=== PATIENT | female | born 1940 | race Caucasian/White ===

== ENCOUNTER → 2016-09-24 | Outpatient (CLI) | payer MEDICARE, OTHER ==
[~2016-09-24] MED LIST: ASPI325T PO; B-COTAB41 PO; COZA100T PO; CYMB30CA PO; D31000CA PO; FIBE625T10 PO; HYDR-3516 PO; LORTA5 PO; MAGN250T11 PO; MAGN250T13 PO; MEMA10 PO; METO-309 PO; METO50 PO; NAME10TA PO; OMEG100037 PO; OMEG1CAP28 PO; POTA10TA2 PO; POTA99TA12 PO; PYRI100T PO; VITA10003 PO; VITA100T55 PO; VITA250L BUCCAL; VITA250L PO; [UNRECOGNIZED DRUG - CODE] PO; [UNRECOGNIZED DRUG - OTHER]
[2016-09-24 19:03] LABS: AUTOMATED NEUTROPHIL # 5.9 TH/MM3 (1.8-7.7); BASOPHIL % 0.2 % (0.0-2.0); EOSINOPHIL # 0.1 TH/MM3 (0-0.4); EOSINOPHIL % 0.7 % (0.0-4.0); HEMATOCRIT 35.3 % (35.0-46.0); HEMO FLAGS DIFF FINAL; LYMPH % 16.9 % (9.0-44.0); LYMPHOCYTE # 1.4 TH/MM3 (1.0-4.8); MEAN CELL VOLUME 103.2 FL (80.0-100.0); MEAN CORPUSCULAR HEMOGLOBIN 34.8 PG (27.0-34.0); MEAN CORPUSCULAR HGB CONC 33.7 % (32.0-36.0); NEUT % 72.2 % (16.0-70.0); PLATELET COUNT 167 TH/MM3 (150-450); RED BLOOD COUNT 3.42 MIL/MM3 (4.00-5.30); WHITE BLOOD COUNT 8.2 TH/MM3 (4.0-11.0)
[2016-09-24 19:43] LABS: FREE T4 0.97 NG/DL (0.76-1.46); HDL CHOLESTEROL 98.9 MG/DL (40.0-60.0); LDL CHOLESTEROL 75 MG/DL (0-99)
[2016-09-24 20:37] LABS: ALKALINE PHOSPHATASE 83 U/L (45-117); ALT (GPT) 23 U/L (10-53); ANION GAP 4 MEQ/L (5-15); AST (GOT) 17 U/L (15-37); BICARBONATE 32.5 MEQ/L (21.0-32.0); BLOOD UREA NITROGEN 16 MG/DL (7-18); CHLORIDE 107 MEQ/L (98-107); GLOMERULAR FILTRATION RATE 87 ML/MIN (>89); GLUCOSE,FASTING 70 MG/DL (74-99); POTASSIUM 4.9 MEQ/L (3.5-5.1); SODIUM (NA) 143 MEQ/L (136-145); TOTAL BILIRUBIN ADULT 0.4 MG/DL (0.2-1.0)
== END ==
LOC: PLAB 15:47
PROVIDERS: ATTEND Family Medicine
DX: I10 Essential (primary) hypertension (principal); F41.9 Anxiety disorder, unspecified; G30.1 Alzheimer's disease with late onset; I71.2 Thoracic aortic aneurysm, without rupture; K21.0 Gastro-esophageal reflux disease with esophagitis; M51.27 Other intervertebral disc displacement, lumbosacral region
CPT/HCPCS: 36415; 80053; 80061; 82607; 84439; 84443; 85025

== ENCOUNTER 2016-12-30 07:07 | Emergency (ER) | payer MEDICARE, OTHER ==
[~2016-12-30 07:07] MED LIST changes: -D31000CA PO; -LORTA5 PO; -MAGN250T13 PO; -MEMA10 PO; -METO50 PO; -OMEG100037 PO; -POTA99TA12 PO; -PYRI100T PO; -VITA100T55 PO; -VITA250L BUCCAL; -VITA250L PO; -[UNRECOGNIZED DRUG - CODE] PO; -[UNRECOGNIZED DRUG - OTHER]
[2016-12-30 07:16] VITALS: BP 200/103; PULSE 64; RESP 18; TEMP 97.8; O2SAT 98
[2016-12-30] MEDS ORDERED: [UNRECOGNIZED DRUG - OTHER] (07:19)
[2016-12-30 07:25] VITALS: O2SAT 97
--- NOTE | 2016-12-30 07:26 | PD ---
HPI Chief Complaint: Chest Pain Time Seen by Provider: 07:09 Travel History International Travel<30 days: No Contact w/Intl Traveler<30days: No Traveled to known affect area: No History of Present Illness HPI The patient is a 76-year-old female who presents emergency department for back pain and chest pain. According the the patient has a history of dementia and chronic back pain for which she undergoes TREMAYNE. The patient awakened at 4 AM complaining of left-sided mid thoracic back pain across the scapula as well as anterior chest pain. The patient does have a previous history of mild CVA, but no previous history of coronary artery disease. The patient does have a history of hypertension and takes 2 different antihypertensive medications. The patient states the pain started across the midthoracic region of the scapula and radiates around the left side of the chest to the anterior chest area, just superior to the epigastrium. She does complain of mild shortness of breath but denies any nausea or vomiting. The patient denies any diaphoresis. The symptoms are moderate and there are no alleviating or exacerbating factors. PFSH Past Medical History Hx Anticoagulant Therapy: No Arthritis: No (hip frx from fall, back frx and rib frx from fall ) Anxiety: No Depression: No Heart Rhythm Problems: No Cancer: No Cardiovascular Problems: Yes (HTN) High Cholesterol: No Chemotherapy: No Chest Pain: Yes Congestive Heart Failure: No Cerebrovascular Accident: No Diabetes: No Diminished Hearing: No Endocrine: No Fibromyalgia: Yes Gastrointestinal Disorders: Yes (Peptic ulcer) Genitourinary: Yes (Incontinence) Hepatitis: No Hiatal Hernia: No Hypertension: Yes Immune Disorder: No Implanted Vascular Access Dvce: No Musculoskeletal: Yes (CBP) Neurologic: Yes (TIA) Psychiatric: Yes (Dementia) Reproductive: No Respiratory: No Immunizations Current: No Migraines: Yes Renal Failure: Yes Seizures: No Thyroid Disease: No PNEUMOCCOCAL Vaccine (Year): 2 Menopausal: Yes Ovarian Cysts: Yes (Ovary removed) Past Surgical History Abdominal Surgery: No Cardiac Surgery: No Ear Surgery: No Endocrine Surgery: No Eye Surgery: Yes (Cataracts with lens implant, glaucoma) Gynecologic Surgery: Yes Hysterectomy: Yes (Partial) Neurologic Surgery: No Oral Surgery: No Thoracic Surgery: Yes (Back) Other Surgery: Yes (back surgery) Family History Family Hypercholesterolemia: Yes Social History Alcohol Use: No Tobacco Use: No Substance Use: No Allergies-Medications (Allergen,Severity, Reaction): Coded Allergies: Codeine (Verified Adverse Reaction, Severe, NAUSEA, 12/30/16) Reported Meds & Prescriptions Reported Meds & Active Scripts Active Reported K-99 (Potassium Gluconate) 595 Mg Cap Vitamin B-Complex (B-Complex Vitamins) 1 Tab 1 Tab PO DAILY Potassium Chloride ER (Potassium Chloride) 10 Meq Tab 10 Meq PO BID [id number] Ethyl Esters 1 Gm Cap 1 Gm PO BID Namenda (Memantine) 10 Mg Tab 10 Mg PO BID Lopressor (Metoprolol Tartrate) 50 Mg Tab 50 Mg PO BID Magnesium Oxide 250 Mg Tab 250 Mg PO DAILY Cozaar (Losartan Potassium) 100 Mg Tab 100 Mg PO DAILY Hydrocodone-Acetaminophen 5-325 mg Tab 1 Tab PO Q4H PRN Cymbalta DR (Duloxetine HCl) 30 Mg Capdr 30 Mg PO DAILY Vitamin D-3 (Cholecalciferol) 1,000 Unit Tab 1,000 Units PO BID Aspirin 325 Mg Tab 325 Mg PO DAILY Review of Systems Except as stated in HPI: all other systems reviewed are Neg General / Constitutional: No: Fever HENT: No: Lightheadedness Cardiovascular: Positive: Chest Pain or Discomfort, No: Diaphoresis Respiratory: Positive: Shortness of Breath Gastrointestinal: No: Nausea, Vomiting, Abdominal Pain Musculoskeletal: Positive: Pain (chronic back pain), No: Weakness Neurologic: No: Dizziness Physical Exam Narrative GENERAL: Awake, alert, pleasant 76-year-old female who appears her stated age and is in no acute respiratory distress. SKIN: Focused skin assessment warm/dry. No stigmata of shingles. HEAD: Atraumatic. Normocephalic. EYES: Pupils equal and round. No scleral icterus. No injection or drainage. ENT: No nasal bleeding or discharge. Mucous membranes pink and moist. NECK: Trachea midline. No JVD. CARDIOVASCULAR: Regular rate and rhythm. No murmur appreciated. RESPIRATORY: No accessory muscle use. Clear to auscultation. Breath sounds equal bilaterally. GASTROINTESTINAL: Abdomen soft, non-tender, nondistended. No rebound tenderness. MUSCULOSKELETAL: No obvious deformities. No clubbing. No cyanosis. No edema. NEUROLOGICAL: Awake and alert. No obvious cranial nerve deficits. Motor grossly within normal limits. Normal speech. Nonfocal. Oriented to person and , but not daily week. PSYCHIATRIC: Appropriate mood and affect; insight and judgment normal. Data Data Last Documented VS Vital Signs Date Time Temp Pulse Resp B/P Pulse Ox O2 Delivery O2 Flow Rate FiO2 12/30/16 07:43 131/83 134/81 12/30/16 07:25 97 Room Air 12/30/16 07:16 97.8 64 18 Orders Electrocardiogram (12/30/16 07:21) Ckmb (Isoenzyme) Profile (12/30/16 07:21) Complete Blood Count With Diff (12/30/16 07:21) Comprehensive Metabolic Panel (12/30/16 07:21) Magnesium (Mg) (12/30/16 07:21) Prothrombin Time / Inr (Pt) (12/30/16 07:21) Act Partial Throm Time (Ptt) (12/30/16 07:21) Troponin I (12/30/16 07:21) Lipase (12/30/16 07:21) Chest, Single Ap (12/30/16 07:21) Ecg Monitoring (12/30/16 07:21) Bilateral Bp Monitoring (12/30/16 07:21) Iv Access Insert/Monitor (12/30/16 07:21) Oximetry (12/30/16 07:21) Oxygen Administration (12/30/16 07:21) Sodium Chloride 0.9% Flush (Ns Flush) (12/30/16 07:30) Nitroglycerin Sl (Nitrostat Sl) (12/30/16 07:30) Cta Thor Abd Aorta W Iv C W3d (12/30/16 07:21) Morphine Inj (Morphine Inj) (12/30/16 07:30) Ondansetron Inj (Zofran Inj) (12/30/16 07:30) Iohexol 350 Inj (Omnipaque 350 Inj) (12/30/16 09:03) Ketorolac Inj (Toradol Inj) (12/30/16 09:45) Labs Laboratory Tests Test 12/30/16 07:15 White Blood Count 8.0 TH/MM3 Red Blood Count 3.38 MIL/MM3 Hemoglobin 11.6 GM/DL Hematocrit 34.8 % Mean Corpuscular Volume 102.8 FL Mean Corpuscular Hemoglobin 34.2 PG Mean Corpuscular Hemoglobin 33.3 % Concent Red Cell Distribution Width 12.9 % Platelet Count 189 TH/MM3 Mean Platelet Volume 10.6 FL Neutrophils (%) (Auto) 66.4 % Lymphocytes (%) (Auto) 19.2 % Monocytes (%) (Auto) 12.0 % Eosinophils (%) (Auto) 1.8 % Basophils (%) (Auto) 0.6 % Neutrophils # (Auto) 5.4 TH/MM3 Lymphocytes # (Auto) 1.5 TH/MM3 Monocytes # (Auto) 1.0 TH/MM3 Eosinophils # (Auto) 0.1 TH/MM3 Basophils # (Auto) 0.0 TH/MM3 CBC Comment DIFF FINAL Differential Comment Prothrombin Time 10.1 SEC Prothromb Time International 0.9 RATIO Ratio Activated Partial 25.0 SEC Thromboplast Time Sodium Level 145 MEQ/L Potassium Level 3.9 MEQ/L Chloride Level 107 MEQ/L Carbon Dioxide Level 27.5 MEQ/L Anion Gap 11 MEQ/L Blood Urea Nitrogen 15 MG/DL Creatinine 0.73 MG/DL Estimat Glomerular Filtration 77 ML/MIN Rate Random Glucose 99 MG/DL Calcium Level 8.6 MG/DL Magnesium Level 2.2 MG/DL Total Bilirubin 0.4 MG/DL Aspartate Amino Transf 23 U/L (AST/SGOT) Alanine Aminotransferase 20 U/L (ALT/SGPT) Alkaline Phosphatase 87 U/L Total Creatine Kinase 70 U/L Troponin I LESS THAN 0.02 NG/ML Total Protein 6.7 GM/DL Albumin 3.7 GM/DL Lipase 82 U/L MDM Medical Decision Making Medical Screen Exam Complete: Yes Emergency Medical Condition: Yes Medical Record Reviewed: Yes Interpretation(s) EKG reveals normal sinus rhythm with a rate of 61. Q wave noted in lead V1 and V2. No significant changes compared to EKG performed October 27, 2015. Laboratory Tests Test 12/30/16 07:15 White Blood Count 8.0 TH/MM3 Red Blood Count 3.38 MIL/MM3 Hemoglobin 11.6 GM/DL Hematocrit 34.8 % Mean Corpuscular Volume 102.8 FL Mean Corpuscular Hemoglobin 34.2 PG Mean Corpuscular Hemoglobin 33.3 % Concent Red Cell Distribution Width 12.9 % Platelet Count 189 TH/MM3 Mean Platelet Volume 10.6 FL Neutrophils (%) (Auto) 66.4 % Lymphocytes (%) (Auto) 19.2 % Monocytes (%) (Auto) 12.0 % Eosinophils (%) (Auto) 1.8 % Basophils (%) (Auto) 0.6 % Neutrophils # (Auto) 5.4 TH/MM3 Lymphocytes # (Auto) 1.5 TH/MM3 Monocytes # (Auto) 1.0 TH/MM3 Eosinophils # (Auto) 0.1 TH/MM3 Basophils # (Auto) 0.0 TH/MM3 CBC Comment DIFF FINAL Differential Comment Prothrombin Time 10.1 SEC Prothromb Time International 0.9 RATIO Ratio Activated Partial 25.0 SEC Thromboplast Time Sodium Level 145 MEQ/L Potassium Level 3.9 MEQ/L Chloride Level 107 MEQ/L Carbon Dioxide Level 27.5 MEQ/L Anion Gap 11 MEQ/L Blood Urea Nitrogen 15 MG/DL Creatinine 0.73 MG/DL Estimat Glomerular Filtration 77 ML/MIN Rate Random Glucose 99 MG/DL Calcium Level 8.6 MG/DL Magnesium Level 2.2 MG/DL Total Bilirubin 0.4 MG/DL Aspartate Amino Transf 23 U/L (AST/SGOT) Alanine Aminotransferase 20 U/L (ALT/SGPT) Alkaline Phosphatase 87 U/L Total Creatine Kinase 70 U/L Troponin I LESS THAN 0.02 NG/ML Total Protein 6.7 GM/DL Albumin 3.7 GM/DL Lipase 82 U/L Last Impressions Chest X-Ray 12/30/16 0721 Signed Impressions: Service Date/Time: Friday, December 30, 2016 07:49 - CONCLUSION: Slight cardiomegaly and left distal clavicular fracture. Papito Linn MD CTA thoracic abdominal aorta reveals atherosclerotic calcifications of the aorta without evidence for dissection. Differential Diagnosis Differential diagnosis includes acute coronary syndrome, thoracic radiculopathy , compression fracture, dissection, AAA, PE, GERD, pancreatitis, peptic ulcer disease. Narrative Course IV was established, labs are drawn and sent, and the patient was placed on cardiac telemetry monitoring and continuous pulse oximetry monitoring. EKG was ordered and interpreted. Chest x-ray was obtained. The patient was aircraft engine mechanic morphine, Zofran, and nitroglycerin sublingual. Aspirin was held until CTA was obtained to evaluate for possible dissection is patient's blood pressure 200/ 100 with thoracic back pain radiating to the anterior aspect of the chest. I reviewed the patient's EMR she had a negative nuclear medicine myocardial perfusion scan performed on March 08, 2015 as well as December 10, 2012, both were negative, low risk, with EF greater than 70%. EKG reveals no significant changes when compared to previous EKG on October 27, 2015. Laboratory evaluation including creatinine is unremarkable. The patient's troponin is negative. CT is negative for dissection, she does have compression fractures, the states these are old. The patient's pain most likely secondary to radiculopathy from the thoracic region. She is very atypical symptoms with 2 negative nuclear medicine myocardial perfusion scans within the last several years, therefore, patient will not be admitted for repeat stress testing. The patient's symptoms started at 4 AM had been constant, therefore, no indication for repeat troponin. The patient's pain has improved, she will be discharged home. Family will be provided a copy of her CT results and lab results at discharge. The patient will be placed in a sling for the distal left clavicle fracture. Diagnosis Primary Impression: Atypical chest pain Additional Impressions: Closed left clavicular fracture Qualified Code: S42.035A - Closed nondisplaced fracture of acromial end of left clavicle, initial encounter Thoracic radiculopathy Patient Instructions: General Instructions Additional Instructions: Please provide the patient a copy of her x-ray results, CT results, and lab results at discharge. Sling as indicated. Follow-up with your primary physician. Return if symptoms worsen or progress. Follow-up with orthopedics in regards to the distal left clavicle fracture. Med/Other Pt SpecificInfo: No Change to Meds Disposition: 01 DISCHARGE HOME Condition: Stable Edwin Millan MD Dec 30, 2016 07:26
[2016-12-30] MEDS ORDERED: ONDANSETRON HCL 4 MG/2 ML VIAL IV PUSH ONE (07:30)
[2016-12-30] MEDS ORDERED: NITROGLYCERIN 0.4 MG SL 25 TABS/BTL SL ONE (07:30)
[2016-12-30] MEDS ORDERED: SODIUM CHLORIDE 0.9% FLUSH 10 ML FLUSH IVF PRN (07:30)
[2016-12-30] MEDS ORDERED: MORPHINE SULFATE 4 MG/ML INJ IV PUSH ONE (07:30)
[2016-12-30 07:34] LABS: AUTOMATED NEUTROPHIL # 5.4 TH/MM3 (1.8-7.7); BASOPHIL % 0.6 % (0.0-2.0); EOSINOPHIL # 0.1 TH/MM3 (0-0.4); EOSINOPHIL % 1.8 % (0.0-4.0); HEMATOCRIT 34.8 % (35.0-46.0); HEMO FLAGS DIFF FINAL; LYMPH % 19.2 % (9.0-44.0); LYMPHOCYTE # 1.5 TH/MM3 (1.0-4.8); MEAN CELL VOLUME 102.8 FL (80.0-100.0); MEAN CORPUSCULAR HEMOGLOBIN 34.2 PG (27.0-34.0); MEAN CORPUSCULAR HGB CONC 33.3 % (32.0-36.0); NEUT % 66.4 % (16.0-70.0); PLATELET COUNT 189 TH/MM3 (150-450); RED BLOOD COUNT 3.38 MIL/MM3 (4.00-5.30); RED CELL DISTRIBUTION WIDTH 12.9 % (11.6-17.2)
[2016-12-30 07:43] VITALS: BP_SYST 131; BP_SYST 134; BP_DIAS 81; BP_DIAS 83
[2016-12-30 07:43] LABS: CHLORIDE 107 MEQ/L (98-107); POTASSIUM 3.9 MEQ/L (3.5-5.1); SODIUM (NA) 145 MEQ/L (136-145)
[2016-12-30 07:47] LABS: ANION GAP 11 MEQ/L (5-15); BICARBONATE 27.5 MEQ/L (21.0-32.0); BLOOD UREA NITROGEN 15 MG/DL (7-18); MAGNESIUM 2.2 MG/DL (1.5-2.5)
[2016-12-30 07:48] LABS: INTERNATIONAL NORMALIZED RATIO 0.9 RATIO; PROTHROMBIN TIME - PATIENT 10.1 SEC (9.8-11.6)
[2016-12-30 07:50] LABS: ALT (GPT) 20 U/L (10-53); AST (GOT) 23 U/L (15-37); GLOMERULAR FILTRATION RATE 77 ML/MIN (>89)
[2016-12-30 07:51] LABS: TOTAL BILIRUBIN ADULT 0.4 MG/DL (0.2-1.0)
[2016-12-30 07:53] LABS: ALKALINE PHOSPHATASE 87 U/L (45-117)
[2016-12-30 08:12] LABS: CREATINE KINASE 70 U/L (26-192)
--- NOTE | 2016-12-30 08:48 | RADHPO ---
EXAM DATE/TIME: 12/30/2016 07:49 [facility] COMPARISON: CHEST PA & LAT, September 29, 2015, 23:42. INDICATIONS : Chest pain. MEDICAL HISTORY : None. SURGICAL HISTORY : None. ENCOUNTER: Initial ACUITY: 1 day PAIN SCORE: 6/10 LOCATION: Bilateral chest FINDINGS: Slight cardiomegaly has not changed. There are atherosclerotic calcifications of the aorta due to chr onic atherosclerotic disease. Lungs are clear. There is a fracture of the left distal clavicle near t he AC joint. CONCLUSION: Slight cardiomegaly and left distal clavicular fracture. Papito Linn MD on December 30, 2016 at 8:46 Board Certified Radiologist. This report was verified electronically.
[2016-12-30] MEDS ORDERED: IOHEXOL 350 MG/ML 10 ML VIAL (for RAD DIAG) IV ONE (09:03)
--- NOTE | 2016-12-30 09:38 | RADHPO ---
EXAM DATE/TIME: 12/30/2016 08:06 [facility] COMPARISON: CT PULMONARY ANGIOGRAM, May 05, 2015, 4:16. CT ABDOMEN & PELVIS W CONTRAST, May 05, 2015, 4:16 . INDICATIONS : Pain across bilateral shoulders since early this morning. IV CONTRAST: 80 cc Omnipaque 350 (iohexol) IV RADIATION DOSE: 17.89 CTDIvol (mGy) MEDICAL HISTORY : Hypertension. SURGICAL HISTORY : Hysterectomy. ENCOUNTER: Initial ACUITY: 1 day PAIN SCALE: 5/10 LOCATION: Bilateral chest TECHNIQUE: Volumetric scanning was performed using a multi-row detector CT scanner. The data was post processed with a variety of visualization algorithms including full volume maximum intensity projection, multi -planar sliding thin slab reformation, curved planar reformation, and surface rendering techniques. Using automated exposure control and adjustment of the mA and/or kV according to patient size, radiat ion dose was kept as low as reasonably achievable to obtain optimal diagnostic quality images. FINDINGS: LUNGS: There is no consolidation or pneumothorax. No concerning pulmonary nodule is visualized. No pleural fluid is present. MEDIASTINUM: No abnormally enlarged lymph nodes by CT criteria. No axillary or hilar abnormalities are identified. Ascending aorta measures 4 cm and descending aorta measures 3 cm without evidence for dissection. Th ere are atherosclerotic calcifications of the aorta due to chronic atherosclerotic disease. ABDOMEN: The liver and spleen are free of focal defects. The gallbladder and pancreas demonstrate no abnormali ty. The adrenal glands are normal. The kidneys demonstrate no evidence of solid renal mass or hydrone phrosis. Multiple simple cysts are present in the kidneys the largest on the left measures 5.6 cm in size. No free fluid or abdominal masses are identified. No para-aortic adenopathy is seen. Hiatal her pinky is seen. PELVIS: No evidence of free fluid or pelvic mass. No abnormally enlarged inguinal or retroperitoneal lymph no feroz are present. The bladder is unremarkable. THORACIC AORTA: The thoracic aortic root is normal with normal branching of the great vessels. There is no evidence of aneurysm or dissection. ABDOMINAL AORTA: The aorta is normal in caliber without aneurysm or dissection. The renal arteries are patent bilater ally. The proximal celiac and superior mesenteric arteries are patent and normal in diameter. PELVIC VESSELS: The internal iliac and external iliac vessels are patent without aneurysm or stenosis. CONCLUSION: Atherosclerotic calcifications of the aorta without evidence for dissection. Papito Linn MD on December 30, 2016 at 9:33 Board Certified Radiologist. This report was verified electronically.
[2016-12-30] MEDS ORDERED: KETOROLAC TROMETHAMINE 30 MG/ML (IVP) VIAL IV PUSH ONE (09:45)
--- NOTE | 2016-12-30 14:19 | EKG ---
Date Performed: 12/30/2016 Time Performed: 07:10:36 PTAGE: 76 years EKG: Sinus rhythm Left axis deviation Poor initial anterior forces which may be a normal variant Since previous tracin g, no significant change noted Abnormal ECG PREVIOUS TRACING : 10/27/2015 17.07.02 DOCTOR: Darci Mullins Interpretating Date/Time 12/30/2016 14:18:02
== END 2016-12-30 09:56 | disposition home or self-care (01) ==
LOC: PHED 07:07
DX: M54.14 Radiculopathy, thoracic region (principal); R07.89 Other chest pain; S42.035A Nondisplaced fracture of lateral end of left clavicle, initial encounter for closed fracture; Z86.73 Personal history of transient ischemic attack (TIA), and cerebral infarction without residual deficits; I10 Essential (primary) hypertension; R06.02 Shortness of breath; M79.7 Fibromyalgia; F03.90 Unspecified dementia, unspecified severity, without behavioral disturbance, psychotic disturbance, mood disturbance, and anxiety; R94.31 Abnormal electrocardiogram [ECG] [EKG]; X58.XXXA Exposure to other specified factors, initial encounter; Y93.9 Activity, unspecified; Y92.9 Unspecified place or not applicable; Y99.8 Other external cause status
CPT/HCPCS: 71010; 71275; 74174; 80053; 82550; 83690; 83735; 84484; 85025; 85610; 85730; 93005; 96374; 96375; 99285; J1885; J2270; J2405; Q9967

== ENCOUNTER 2017-03-26 06:21 | Emergency (ER) | payer MEDICARE, OTHER ==
[~2017-03-26] VITALS: Ht 162.6 cm; Wt 61.8 kg
[~2017-03-26 06:21] MED LIST changes: -FIBE625T10 PO; +[UNRECOGNIZED DRUG - OTHER]
[2017-03-26 06:33] VITALS: BP 178/93; PULSE 76; RESP 18; TEMP 98.3
[2017-03-26] MEDS ORDERED: TETANUS/DIPHTHERIA TOXOID ADULT 0.5 ML VIAL IM ONE (06:45)
[2017-03-26] MEDS ORDERED: LIDOCAINE 1%/EPINEPHrine 1:100,000 SOLN 20 ML VIAL INFIL ONE (06:45)
--- NOTE | 2017-03-26 06:46 | PD ---
HPI Chief Complaint: Fall Time Seen by Provider: 06:39 Travel History International Travel<30 days: No Contact w/Intl Traveler<30days: No Traveled to known affect area: No History of Present Illness HPI 76-year-old female complains of headache, sacrococcyx pain. Patient tripped on her cat this morning and fell and hit the back of the head. Patient denies loss of consciousness. Patient complain headache in the back of the head. Patient denies any visual change. Patient denies any neck pain. Patient denies any chest pain or shortness of breath. Patient denies abdominal pain. Patient denies any extremity injury. Patient complains of sharp pain around sacrococcyx area. Patient denies any focal weakness or numbness of extremity. Patient's not up-to-date with TD booster. Patient denies any nausea vomiting. Patient's states the patient mental status is about the same. PFSH Past Medical History Hx Anticoagulant Therapy: No Arthritis: No (hip frx from fall, back frx and rib frx from fall ) Anxiety: No Depression: No Heart Rhythm Problems: No Cancer: No Cardiovascular Problems: Yes (HTN) High Cholesterol: No Chemotherapy: No Chest Pain: Yes Congestive Heart Failure: No Cerebrovascular Accident: No Dementia: Yes Diabetes: No Diminished Hearing: No Endocrine: No Fibromyalgia: Yes Gastrointestinal Disorders: Yes (Peptic ulcer) Genitourinary: Yes (Incontinence) Hepatitis: No Hiatal Hernia: No Hypertension: Yes Immune Disorder: No Implanted Vascular Access Dvce: Yes Musculoskeletal: Yes (CBP) Neurologic: Yes (TIA) Psychiatric: Yes (Dementia) Reproductive: No Respiratory: No Immunizations Current: No Migraines: Yes Renal Failure: Yes Seizures: No Thyroid Disease: No PNEUMOCCOCAL Vaccine (Year): 2 Menopausal: Yes Ovarian Cysts: Yes (Ovary removed) Past Surgical History Abdominal Surgery: No Cardiac Surgery: No Ear Surgery: No Endocrine Surgery: No Eye Surgery: Yes (Cataracts with lens implant, glaucoma) Gynecologic Surgery: Yes Hysterectomy: Yes (Partial) Neurologic Surgery: No Oral Surgery: No Thoracic Surgery: Yes (Back) Other Surgery: Yes (back surgery) Family History Family Hypercholesterolemia: Yes Social History Alcohol Use: No Tobacco Use: No Substance Use: No Allergies-Medications (Allergen,Severity, Reaction): Coded Allergies: Codeine (Verified Adverse Reaction, Severe, NAUSEA, 12/30/16) Reported Meds & Prescriptions Reported Meds & Active Scripts Active Reported K-99 (Potassium Gluconate) 595 Mg Cap Vitamin B-Complex (B-Complex Vitamins) 1 Tab 1 Tab PO DAILY Potassium Chloride ER (Potassium Chloride) 10 Meq Tab 10 Meq PO BID [id number] Ethyl Esters 1 Gm Cap 1 Gm PO BID Namenda (Memantine) 10 Mg Tab 10 Mg PO BID Lopressor (Metoprolol Tartrate) 50 Mg Tab 50 Mg PO BID Magnesium Oxide 250 Mg Tab 250 Mg PO DAILY Cozaar (Losartan Potassium) 100 Mg Tab 100 Mg PO DAILY Hydrocodone-Acetaminophen 5-325 mg Tab 1 Tab PO Q4H PRN Cymbalta DR (Duloxetine HCl) 30 Mg Capdr 30 Mg PO DAILY Vitamin D-3 (Cholecalciferol) 1,000 Unit Tab 1,000 Units PO BID Aspirin 325 Mg Tab 325 Mg PO DAILY Review of Systems General / Constitutional: No: Fever Eyes: No: Visual changes HENT: Positive: Headaches Cardiovascular: No: Chest Pain or Discomfort Respiratory: No: Shortness of Breath Gastrointestinal: No: Abdominal Pain Genitourinary: No: Dysuria Musculoskeletal: No: Pain Skin: No Rash Neurologic: No: Weakness Psychiatric: No: Depression Endocrine: No: Polydipsia Hematologic/Lymphatic: No: Easy Bruising Physical Exam Narrative GENERAL: Well-nourished, well-developed patient. SKIN: Focused skin assessment warm/dry. HEAD: Normocephalic. Patient has a 2 cm scalp laceration on occipital area of the scalp. Soft tissue swelling noted. No active bleeding. EYES: No scleral icterus. No injection or drainage. NECK: Supple, trachea midline. No JVD or lymphadenopathy. No tenderness on palpation the neck area. CARDIOVASCULAR: Regular rate and rhythm without murmurs, gallops, or rubs. RESPIRATORY: Breath sounds equal bilaterally. No accessory muscle use. GASTROINTESTINAL: Abdomen soft, non-tender, nondistended. MUSCULOSKELETAL: No cyanosis, or edema. BACK: Patient has mild to moderate tenderness on palpation sacrococcyx area, without obvious deformity. No CVA tenderness. Neurologic exam: Patient's awake and alert oriented to place and person. Patient moves all extremities well. No obvious focal neurological deficit. Data Data Last Documented VS Vital Signs Date Time Temp Pulse Resp B/P Pulse Ox O2 Delivery O2 Flow Rate FiO2 03/26/17 06:39 Room Air 03/26/17 06:33 98.3 76 18 178/93 [facility] Medical Decision Making Medical Screen Exam Complete: Yes Emergency Medical Condition: Yes Differential Diagnosis Differential diagnosis including laceration, contusion, fracture, dislocation. Narrative Course 76-year-old female with head injury and sacrum coccyx injury. Status post fall. TD booster given. Diagnosis Primary Impression: Scalp laceration Qualified Code: S01.01XA - Scalp laceration, initial encounter Additional Impressions: Contusion of sacrococcygeal region Qualified Code: S30.0XXA - Contusion of sacrococcygeal region, initial encounter Closed head injury Qualified Code: S09.90XA - Closed head injury, initial encounter Beni Robin MD Mar 26, 2017 06:46
[2017-03-26] MEDS ORDERED: ASPI81CH CHEW (06:54)
[2017-03-26] MEDS ORDERED: MAGN200T PO (06:55)
[2017-03-26] MEDS ORDERED: POTA99TA4 PO (06:55)
[2017-03-26] MEDS ORDERED: CHOL1CAP6 PO (06:55)
--- NOTE | 2017-03-26 07:07 | RADRPT ---
EXAM DATE/TIME: 03/26/2017 06:46 [facility] COMPARISON: CT BRAIN W/O CONTRAST, October 27, 2015, 17:22. INDICATIONS : Fall. Right occipital laceration. RADIATION DOSE: 59.82 CTDIvol (mGy) MEDICAL HISTORY : Cerebrovascular disease. SURGICAL HISTORY : None. ENCOUNTER: Initial ACUITY: 1 day PAIN SCALE: 8/10 LOCATION: Right occipital TECHNIQUE: Multiple contiguous axial images were obtained of the head. Using automated exposure control and adj ustment of the mA and/or kV according to patient size, radiation dose was kept as low as reasonably a chievable to obtain optimal diagnostic quality images. DICOM format image data is available electro nically for review and comparison. FINDINGS: CEREBRUM: The ventricles are normal for age. Stable bilateral cortical atrophy and chronic white matter change s. No evidence of midline shift, mass lesion, hemorrhage or acute infarction. No extra-axial fluid c ollections are seen. POSTERIOR FOSSA: The cerebellum and brainstem are intact. The 4th ventricle is midline. The cerebellopontine angle i s unremarkable. EXTRACRANIAL: The visualized portion of the orbits is intact. Soft tissue swelling of the scalp over the right occi pital region. SKULL: The calvaria is intact. No evidence of skull fracture. No significant changes compared to the prior examination. CONCLUSION: 1. No focal or acute intracranial hemorrhage. 2. Stable bilateral cortical atrophy and chronic white matter changes. 3. Soft tissue swelling of the scalp over the right occipital region. Brown Garcia MD on March 26, 2017 at 7:03 Board Certified Radiologist. This report was verified electronically.
[2017-03-26 07:15] VITALS: BP 198/91; PULSE 64; RESP 16; O2SAT 95
[2017-03-26] MEDS ORDERED: LIDOCAINE 1%/EPINEPHrine 1:100,000 SOLN 30 ML VIAL INFIL ONE (07:15)
--- NOTE | 2017-03-26 07:36 | PD ---
Physical Exam Narrative GENERAL: Well-nourished, well-developed patient. SKIN: Warm and dry. HEAD: Normocephalic and 4 cm vertical laceration noted to occipital area with underlying hematoma EYES: No injection or drainage. ENT: No nasal drainage noted. NECK: Supple, trachea midline. Nontender in midline with range of motion CARDIOVASCULAR: Regular rate and rhythm RESPIRATORY: no increased effort. No accessory muscle use. GASTROINTESTINAL: Abdomen soft, non-tender, nondistended. EXTREMITIES: Pain with palpation of right posterior hip area, no pain with other joints , neurovascularly intact, no lacerations over, compartments soft. NEUROLOGICAL: Awake and alert. Motor and sensory grossly within normal limits. Normal speech. Data Data Last Documented VS Vital Signs Date Time Temp Pulse Resp B/P Pulse Ox O2 Delivery O2 Flow Rate FiO2 03/26/17 07:15 64 16 198/91 95 03/26/17 06:39 Room Air 03/26/17 06:[address] Brain W/O Iv Contrast(Rout) (03/26/17 06:39) Pelvis, Ap Only (Routine) (03/26/17 ) Sacrum And Coccyx (03/26/17 ) Tetanus/Diphtheria Tox Adult (Tetanus/Di (03/26/17 06:45) Lidocai-Epi 1%-1:100,000 Inj (Xylocaine- (03/26/17 07:15) MDM Supervised Visit with JER: No Interpretation(s) Last [address] 03/26/17 0639 Signed Impressions: Service Date/Time: Sunday, March 26, 2017 06:46 - CONCLUSION: 1. No focal or acute intracranial hemorrhage. 2. Stable bilateral cortical atrophy and chronic white matter changes. 3. Soft tissue swelling of the scalp over the right occipital region. Brown Garcia MD Sacrum and Coccyx X-Ray 03/26/17 0000 Signed Impressions: Service Date/Time: Sunday, March 26, 2017 07:07 - CONCLUSION: Normal examination for a patient of this age. Brown Garcia MD Pelvis X-Ray 03/26/17 0000 Signed Impressions: Service Date/Time: Sunday, March 26, 2017 07:02 - CONCLUSION: Normal examination for a patient of this age. No significant change has occurred. Brown Garcia MD Narrative Course Signed over to me to repair laceration and follow imaging Laceration repaired, image without emergent findings, patient with steady gait and no new complaints. states that they are feeling better. Patient and caregiver happy with care, all questions answered. Patient and caregiver knows that follow up is incumbent on them and to return to the emergency room immediately if new or worsening symptoms develop. Patient and caregiver given strict return precautions, vitals reviewed and are normal, agrees to further workup as an outpatient. Patient has not taken her blood pressure medication yet this morning. She will take this at home Procedures Procedure Narrative LACERATION LOCATION: Occipital scalp LENGTH: 4 cm NUMBER OF STITCHES/ECTOR: 10 Hazel REPAIR: The area of the laceration was prepped with Betadine and sterilely draped. The laceration was infiltrated with 2% lidocaine with epinephrine. The wound was copiously irrigated and explored without evidence of foreign body or neurovascular injury. The wound was closed using ector. This was a single layer repair. A sterile dressing was applied. The patient was advised to keep the dressing clean and dry. Patient tolerated the procedure well. Diagnosis Primary Impression: Scalp laceration Qualified Code: S01.01XA - Scalp laceration, initial encounter Additional Impressions: Closed head injury Qualified Code: S09.90XA - Closed head injury, initial encounter Contusion of sacrococcygeal region Qualified Code: S30.0XXA - Contusion of sacrococcygeal region, initial encounter Patient Instructions: General Instructions Additional Instruction: have ector removed in one week here or through primary, return as needed, Tylenol as needed Med/Other Pt SpecificInfo: No Change to Meds Disposition: 01 DISCHARGE HOME Condition: Stable Daisy Arceo MD Mar 26, 2017 07:36
--- NOTE | 2017-03-26 07:39 | RADRPT ---
EXAM DATE/TIME: 03/26/2017 07:02 [facility] COMPARISON: PELVIS AP ONLY, January 23, 2012, 14:53. INDICATIONS : Pelvic pain; fell lastnight. MEDICAL HISTORY : None. SURGICAL HISTORY : None. ENCOUNTER: Initial ACUITY: 1 day PAIN SCORE: 8/10 LOCATION: Bilateral posterior pelvis. FINDINGS: A single frontal view of the pelvis demonstrates no evidence of fracture. The bony pelvic ring is in tact. Bony mineralization is normal. The soft tissues are intact. There is primary degenerative alejandra nges at both hip joints. There is good alignment of the SI joints and pubic symphysis. No significant change compared to 2011. CONCLUSION: Normal examination for a patient of this age. No significant change has occurred. Brown Garcia MD on March 26, 2017 at 7:36 Board Certified Radiologist. This report was verified electronically.
--- NOTE | 2017-03-26 07:40 | RADRPT ---
EXAM DATE/TIME: 03/26/2017 07:07 [facility] COMPARISON: No previous studies available for comparison. INDICATIONS : Pelvic pain; fell lastnight. MEDICAL HISTORY : None. SURGICAL HISTORY : None. ENCOUNTER: Initial ACUITY: 1 day PAIN SCORE: 8/10 LOCATION: Bilateral posterior sacrum/ coccyx. FINDINGS: Two-view examination of the sacrum and coccyx demonstrates no evidence of fracture or malalignment. The sacral ala and foramina appear symmetric and intact. The coccyx appears unremarkable. The preve rtebral soft tissues are within normal limits. CONCLUSION: Normal examination for a patient of this age. Brown Garcia MD on March 26, 2017 at 7:37 Board Certified Radiologist. This report was verified electronically.
== END 2017-03-26 08:28 | disposition home or self-care (01) ==
LOC: PHED 06:21
DX: S01.01XA Laceration without foreign body of scalp, initial encounter (principal); S30.0XXA Contusion of lower back and pelvis, initial encounter; I10 Essential (primary) hypertension; F03.90 Unspecified dementia, unspecified severity, without behavioral disturbance, psychotic disturbance, mood disturbance, and anxiety; W01.0XXA Fall on same level from slipping, tripping and stumbling without subsequent striking against object, initial encounter; Y92.009 Unspecified place in unspecified non-institutional (private) residence as the place of occurrence of the external cause; Z23 Encounter for immunization
CPT/HCPCS: 12002; 70450; 72170; 72220; 90471; 90714

== ENCOUNTER 2017-04-02 16:42 | Emergency (ER) | payer MEDICARE, OTHER ==
[~2017-04-02] VITALS: Ht 162.6 cm; Wt 62.3 kg
[~2017-04-02 16:42] MED LIST changes: -ASPI325T PO; +ASPI81CH CHEW; -B-COTAB41 PO; +CHOL1CAP6 PO; +MAGN200T PO; -MAGN250T11 PO; -OMEG1CAP28 PO; -POTA10TA2 PO; +POTA99TA4 PO; -VITA10003 PO; -[UNRECOGNIZED DRUG - OTHER]
[2017-04-02 17:03] VITALS: BP 177/77; PULSE 60; RESP 16; TEMP 97.3; O2SAT 98
--- NOTE | 2017-04-02 17:49 | PD ---
HPI Chief Complaint: Wound/Suture/Staple Re-Check Time Seen by Provider: 17:35 Travel History International Travel<30 days: No Contact w/Intl Traveler<30days: No Traveled to known affect area: No History of Present Illness HPI 76-year-old female presents to the emergency room for staple removal. Patient had 10 ector placed 7 days ago after falling and hitting her head. Denies any complaints today. She has been keeping wound clean and dry but not limited any triple antibiotic ointment to it. PFSH Past Medical History Hx Anticoagulant Therapy: Yes (asa 81mg) Anxiety: No Depression: No Heart Rhythm Problems: No Cancer: No Cardiovascular Problems: Yes (htn on meds) High Cholesterol: No Chemotherapy: No Chest Pain: Yes Congestive Heart Failure: No Cerebrovascular Accident: Yes Dementia: Yes Diabetes: No Diminished Hearing: No Endocrine: No Fibromyalgia: Yes Gastrointestinal Disorders: Yes (Peptic ulcer) Genitourinary: Yes (Incontinence) Hepatitis: No Hiatal Hernia: No Hypertension: Yes Immune Disorder: No Implanted Vascular Access Dvce: Yes Medical other: Yes (BACK PAIN) Musculoskeletal: Yes (CBP) Neurologic: Yes (TIA) Psychiatric: Yes (Dementia) Reproductive: No Respiratory: No Immunizations Current: No Migraines: Yes Renal Failure: Yes Seizures: No Thyroid Disease: No PNEUMOCCOCAL Vaccine (Year): 2 ?: Not Menopausal: Yes Ovarian Cysts: Yes (Ovary removed) Past Surgical History Abdominal Surgery: No Cardiac Surgery: No Ear Surgery: No Endocrine Surgery: No Eye Surgery: Yes (Cataracts with lens implant, glaucoma) Gynecologic Surgery: Yes Hysterectomy: Yes (Partial) Neurologic Surgery: No Oral Surgery: No Thoracic Surgery: Yes (Back) Other Surgery: Yes (back surgery) Family History Family Hypercholesterolemia: Yes Social History Alcohol Use: No Tobacco Use: No Substance Use: No Allergies-Medications (Allergen,Severity, Reaction): Coded Allergies: Codeine (Verified Adverse Reaction, Severe, NAUSEA, 03/26/17) Reported Meds & Prescriptions Reported Meds & Active Scripts Active Reported Magnesium 200 Mg Tab 150 Mg PO DAILY Potassium 99 Mg Tablet 1 Tab PO BID Vitamin D-3 (Cholecalciferol) 1,000 Unit Cap 1 Cap PO BID Aspirin 81 Mg Chew 81 Mg CHEW DAILY Namenda (Memantine) 10 Mg Tab 10 Mg PO BID Lopressor (Metoprolol Tartrate) 50 Mg Tab 50 Mg PO BID Cozaar (Losartan Potassium) 100 Mg Tab 100 Mg PO DAILY Hydrocodone-Acetaminophen 5-325 mg Tab 1 Tab PO Q4H PRN Jennifer ZAYAS (Duloxetine HCl) 30 Mg Capdr 30 Mg PO BID Review of Systems Except as stated in HPI: all other systems reviewed are Neg Physical Exam Narrative GENERAL: Well-nourished, well-developed female in no acute distress. Afebrile. Ambulatory. SKIN: Focused skin assessment warm/dry. There is a well-healed, scabbed over laceration in the posterior scalp with 10 intact ector. HEAD: Normocephalic. EYES: No scleral icterus. No injection or drainage. NECK: Supple, trachea midline. No JVD or lymphadenopathy. CARDIOVASCULAR: Regular rate and rhythm without murmurs, gallops, or rubs. RESPIRATORY: Breath sounds equal bilaterally. No accessory muscle use. PSYCHIATRIC: No delusional thought processes. No hallucinations. Data Data Last Documented VS Vital Signs Date Time Temp Pulse Resp B/P Pulse Ox O2 Delivery O2 Flow Rate FiO2 04/02/17 17:03 97.3 60 16 177/77 98 MDM Medical Decision Making Medical Screen Exam Complete: Yes Emergency Medical Condition: Yes Medical Record Reviewed: Yes Differential Diagnosis Suture removal, staple application, laceration, wound infection Narrative Course 76-year-old female presents to the emergency room for staple removal. Patient had 10 ector placed 7 days ago after falling. Denies any complaints today. Physical exam reveals 10 intact ector with well-healed wound. No infection. Ector removed without difficulty. Patient discharged with wound care instructions and told to follow-up as needed. She understands and agrees to plan. Diagnosis Primary Impression: Removal of ector Referrals: Primary Care Physician Patient Instructions: General Instructions, Stitches Removal (ED) Additional Instructions: Keep wound clean and dry. Follow up with her primary care physician as needed. Return for worsening symptoms. Disposition: 01 DISCHARGE HOME Condition: Stable Delia Urrutia Apr 02, 2017 17:49
== END 2017-04-02 17:58 | disposition home or self-care (01) ==
LOC: PHEFT 16:42
DX: S01.01XD Laceration without foreign body of scalp, subsequent encounter (principal); W19.XXXD Unspecified fall, subsequent encounter; Z48.02 Encounter for removal of sutures
CPT/HCPCS: 99281

== ENCOUNTER → 2017-09-27 | Outpatient (CLI) | payer MEDICARE, OTHER ==
[~2017-09-27] MED LIST changes: +ASPI-516 CHEW; -ASPI81CH CHEW; -CHOL1CAP6 PO; +D31000CA3 PO
[2017-09-27 13:39] LABS: AUTOMATED NEUTROPHIL # 4.5 TH/MM3 (1.8-7.7); BASOPHIL % 0.3 % (0.0-2.0); EOSINOPHIL # 0.1 TH/MM3 (0-0.4); EOSINOPHIL % 0.9 % (0.0-4.0); HEMOGLOBIN 12.2 GM/DL (11.6-15.3); LYMPH % 16.5 % (9.0-44.0); LYMPHOCYTE # 1.1 TH/MM3 (1.0-4.8); MEAN CELL VOLUME 103.1 FL (80.0-100.0); MEAN CORPUSCULAR HGB CONC 34.9 % (32.0-36.0); MONO % 16.1 % (0.0-8.0); MONOCYTE # 1.1 TH/MM3 (0-0.9); NEUT % 66.2 % (16.0-70.0); PLATELET COUNT 166 TH/MM3 (150-450); RED BLOOD COUNT 3.39 MIL/MM3 (4.00-5.30); WHITE BLOOD COUNT 6.8 TH/MM3 (4.0-11.0)
[2017-09-27 13:57] LABS: ALBUMIN 3.6 GM/DL (3.4-5.0); ALT (GPT) 24 U/L (10-53); AST (GOT) 19 U/L (15-37); BICARBONATE 30.2 MEQ/L (21.0-32.0); BLOOD UREA NITROGEN 17 MG/DL (7-18); CALCIUM 8.5 MG/DL (8.5-10.1); CHLORIDE 108 MEQ/L (98-107); CHOLESTEROL 177 MG/DL (120-200); CREATININE 0.67 MG/DL (0.50-1.00); GLOMERULAR FILTRATION RATE 85 ML/MIN (>89); GLUCOSE,FASTING 82 MG/DL (74-99); SODIUM (NA) 142 MEQ/L (136-145)
[2017-09-27 14:20] LABS: ALKALINE PHOSPHATASE 83 U/L (45-117); CHOLESTEROL/ HDL RATIO 2.06 RATIO; FREE T4 1.03 NG/DL (0.76-1.46); HDL CHOLESTEROL 85.6 MG/DL (40.0-60.0); LDL CHOLESTEROL 87 MG/DL (0-99); TOTAL BILIRUBIN ADULT 0.5 MG/DL (0.2-1.0); TOTAL PROTEIN 6.9 GM/DL (6.4-8.2); TRIGLYCERIDES 23 MG/DL (42-150)
== END ==
LOC: PLAB 11:59
PROVIDERS: ATTEND Family Medicine
DX: I10 Essential (primary) hypertension (principal); G30.1 Alzheimer's disease with late onset; I71.2 Thoracic aortic aneurysm, without rupture; M51.27 Other intervertebral disc displacement, lumbosacral region; M50.220 Other cervical disc displacement, mid-cervical region, unspecified level
CPT/HCPCS: 36415; 80053; 80061; 84439; 84443; 85025